=== PATIENT | female | born 1960 | race Caucasian/White ===

== ENCOUNTER → 2018-07-19 16:43 | Outpatient (CLI) | payer BC, SELFPAY ==
--- NOTE | 2018-07-19 16:46 | BI_ITS ---
MAMMOGRAPHY - BILATERAL SCREENING 3-D VIKTORIA SYNTHESIS REASON FOR EXAM: Female, 57 years old. Bilateral Screening 3-D tomosynthesis PERTINENT HISTORY: Personal history of DCIS status post left lumpectomy. History of left stereotactic biopsy in 2011 and right stereotactic biopsy in 2009.. TECHNIQUE: 2-D mammograms and 3-D Viktoria synthesis of the breast (s) were performed. CAD was performed. COMPARISON: July 12, 2017, July 11, 2016 FINDINGS: The breast composition is almost entirely fat. There are stable tissue clip markers in both breasts. There are stable lymph nodes in both axillae. Scattered benign calcifications are seen. No dense spiculated masses or suspicious microcalcifications are identified. No architectural distortion is identified. There is no skin thickening or retraction. There has been no significant change since the prior study. BI/SCREENING MAMM (CAD), BILAT IMPRESSION: No mammographic signs of malignancy. Routine yearly mammograms recommended. ASSESSMENT CATEGORY: BIRADS Category 2: Benign. A letter regarding these results will be sent to the patient by the facility within 30 days. FOLLOW UP RECOMMENDATION: Yearly follow up mammogram recommended. (A) Approximately 10% of breast cancers are not detected by mammography. A normal mammogram should not delay biopsy of a clinically suspicious abnormality. Electronically Signed: Mitchell Lamb MD at 10:58 EST , Service support ,
== END ==
PROVIDERS: Family Provider Family Medicine; PCP Family Medicine; Referring Provider Nurse Practitioner; Visit Provider Nurse Practitioner
DX: Z12.31 Encounter for screening mammogram for malignant neoplasm of breast (principal)
CPT/HCPCS: 77063; 77067

== ENCOUNTER → 2019-07-23 15:37 | Outpatient (CLI) | payer BC, SELFPAY ==
--- NOTE | 2019-07-23 15:39 | BI_ITS ---
MAMMOGRAPHY - BILATERAL SCREENING 3-D TOMOSYNTHESIS REASON FOR EXAM: Female, 58 years old. P/H OF DCIS AT AGE 51 2 MAT COUSINS 51 and amp;amp; 56 W/TRIPLE NEG -- 1 MAT COUSIN @ 53 W/DCIS -- QUIT TOMOXIFEN -- LT LATERAL BREAST TENDERNESS X6WKS RIDGELIKE AREA NEAR LUMPECTOMY SCAR ALONG LOWER RIB -- RT STEREO BX 2009 -- LT STEREO BX 2011 -- HAD CT SCAN NOVEMBER 2018 AT [facility] SAW SOMETHING ON RT BREAST HAD MAMMO DONE AT [facility] END OF NOVEMBER=N -- LT LUMPECTOMY 2012 WITH RADIATION -- LT STEREO BX AFTER LUMPECTOMY 12/2012 (NECROSIS) PERTINENT HISTORY: No significant family history. TECHNIQUE: 2-D mammograms and 3-D Tomosynthesis of the breast (s) were performed. CAD was performed. COMPARISON: December 04, 2018 and July 19, 2018. FINDINGS: The breast composition is composed of scattered fibroglandular density. There is an approximately 8.0 mm, ovoid, hyperdense density on the CC views within the deep slightly lateral right breast positioned approximately 71 mm from the nipple base. No definite correlative finding is seen on orthogonal views. Recommend sonographic evaluation of the lateral right breast for further evaluation. There is a 4.2 mm ovoid nodule within the right upper inner breast (anterior to mid zone) that is positioned 3.6 cm from the nipple base on CC views and positioned 4.3 cm deep to the nipple base on MLO views.. Recommend sonographic evaluation of of this finding for additional characterization. There is a small nodule with adjacent microcalcifications and a biopsy clip within the anterior upper right breast. There has been no significant change since the prior study. BI/SCREEN MAMM (CAD) W/VIKTORIA BILAT IMPRESSION: Discrete nodules and nodular densities within the right breast as above. Recommend further characterization with sonography. ASSESSMENT CATEGORY: BIRADS Category 0: Incomplete. Need additional imaging evaluation as above. A letter regarding these results will be sent to the patient by the facility within 30 days. FOLLOW UP RECOMMENDATION: Ultrasound Recommended. (I) Approximately 10% of breast cancers are not detected by mammography. A normal mammogram should not delay biopsy of a clinically suspicious abnormality. Electronically Signed: Hadley Mcelroy MD at 15:22 EST , Service support ,
== END ==
PROVIDERS: Family Provider Family Medicine; PCP Family Medicine; Referring Provider Nurse Practitioner; Visit Provider Nurse Practitioner
DX: Z12.31 Encounter for screening mammogram for malignant neoplasm of breast (principal); D05.12 Intraductal carcinoma in situ of left breast
CPT/HCPCS: 77063; 77067

== ENCOUNTER → 2019-08-02 08:22 | Outpatient (CLI) | payer BC, SELFPAY ==
--- NOTE | 2019-08-02 08:24 | US_ITS ---
STUDY: ULTRASOUND BREAST - RIGHT REASON FOR EXAM: Female, 59 years old. Abnormal screening mammogram. TECHNIQUE: Axial and longitudinal images of the RIGHT breast were performed with a high resolution ultrasound transducer. # OF IMAGES: 81 COMPARISON: Comparison is made with prior mammogram dated July 23, 2019 and prior ultrasound of the left breast dated May 02, 2013. FINDINGS: RIGHT Breast: Multiple cysts are seen in the upper medial and lateral aspect of the right breast. The largest cyst measures 7 mm x 8 mm x 3 mm. This is at the 9:00 position breast at 8 cm. US/Breast Limited Unilateral IMPRESSION: Multiple cysts. ASSESSMENT CATEGORY: BIRADS Category 2: Benign. A letter regarding these results will be sent to the patient by the facility within 30 days. Electronically Signed: Hong Esquivel, at 15:18 EST , Service support ,
== END ==
PROVIDERS: Family Provider Family Medicine; PCP Family Medicine; Referring Provider Nurse Practitioner; Visit Provider Nurse Practitioner
DX: D05.12 Intraductal carcinoma in situ of left breast (principal); R92.8 Other abnormal and inconclusive findings on diagnostic imaging of breast
CPT/HCPCS: 76642

== ENCOUNTER → 2019-12-04 14:34 | Outpatient (CLI) | payer BC, SELFPAY ==
[2017-10-08 11:31] VITALS: BMI 34.9
[2019-12-04 16:43] LABS: D-Dimer Quantitative (DVT/PE) 0.39 FEU/ug/m (0.27-0.49)
== END ==
PROVIDERS: PCP Family Medicine; Referring Provider Family Medicine; Visit Provider Family Medicine
DX: R07.9 Chest pain, unspecified (principal)
CPT/HCPCS: 84484; 85379

== ENCOUNTER → 2020-06-03 14:06 | Outpatient (CLI) | payer BC, SELFPAY ==
[2020-06-03 13:19] VITALS: BMI 37.9
[2020-06-03 15:15] LABS: Absolute Lymphocyte Count 2.07 X10^3/uL (0.83-4.51); Absolute Neutrophil Count 2.5 X10^3/uL (2.0-7.7); Basophil# 0.03 X10^3/uL; Basophil% 0.6 % (0-1); Eosinophil# 0.18 X10^3/uL; Eosinophils% 3.4 % (0-5); Hematocrit 40.5 % (37-47); Lymphocyte # 2.07 X10^3/ul (4.0); Mean Corp Hgb Conc 32.1 g/dL (32-36); Mean Corpuscular Hgb 28.1 pg (27.0-32.0); Mean Corpuscular Volume 87.7 fL (81-99); Mean Platelet Vol. 9.8 fl (6.2-12.0); Monocyte% 9.4 % (0-10); NRBC Flagged by Analyzer 0 % (0-5); Neutrophil # 2.52 X10^3/uL (2.7-7.7); Neutrophil % 47.4 % (47-70); Platelet Count 300 K/mm3 (150-450); RBC Distribution Width CV 13.8 % (11.6-14.6); RBC Distribution Width SD 44.1 fl (35.1-43.9); Red Blood Count 4.62 M/mm3 (4.2-5.4); White Blood Count 5.3 K/mm3 (4.4-11.0)
[2020-06-03 16:26] LABS: AST(SGOT) 24 U/L (15-37); Alanine Aminotransfer ALT/SGPT 43 U/L (13-56); Albumin, Serum 3.9 g/dL (3.2-5.0); Alkaline Phosphatase 76 U/L (45-117); Anion Gap 8 (5-15); BUN 15 mg/dL (7-18); BUN/Creat Ratio 19.4 RATIO (10-20); Bilirubin, Direct 0.11 mg/dL (0.00-0.30); Calcium,Total 8.7 mg/dL (8.5-10.1); Chloride 107 mmol/L (98-107); Cholesterol 218 mg/dL (200); Creatinine, Serum 0.77 mg/dL (0.55-1.02); EST Glomerular Filtration Rate 81 mL/min (>60); Est Glom Filt Rate - Afr Amer 98 mL/min (>60); Globulin 3.6 g/dL (2.2-4.2); Glucose 91 mg/dL (74-106); High Density Lipoprotein 47 mg/dL; Potassium 3.8 mmol/L (3.5-5.1); Protein, Total 7.5 g/dL (6.4-8.2); Sodium Level 141 mmol/L (136-145); Thyroid Stim Hormone (TSH) 0.91 uIU/mL (0.358-3.74); Triglycerides 130 mg/dL; Very Low Density Lipoprotein 26 mg/dL (5-40)
[2020-06-03 16:43] LABS: BNP,B-Type NATRIURETIC PEPTIDE 48.2 pg/mL (0-100)
== END ==
PROVIDERS: PCP Family Medicine; Referring Provider Internal Medicine Cardiovascular Disease; Visit Provider Internal Medicine Cardiovascular Disease
DX: R07.9 Chest pain, unspecified (principal); R06.00 Dyspnea, unspecified
CPT/HCPCS: 36415; 80048; 80061; 80076; 83880; 84443; 85025

== ENCOUNTER → 2020-06-15 06:32 | Outpatient (CLI) | payer BC, SELFPAY ==
[2020-06-03 13:19] VITALS: BMI 37.9
--- NOTE | 2020-06-15 06:36 | ECHOCS_ITS ---
Reason For Study: CAD/ASHD Procedure This was a 2D Doppler, Color Flow transthoracic echocardiogram. Technically difficult study. Unable to perform strain analysis due to needed use of Definity. Exam performed in department. Left Ventricle Normal LV size. Left ventricular systolic function is normal. The estimated ejection fraction is 65 %. Stage 1 diastolic dysfunction. No regional wall motion abnormalities noted. Right Ventricle Normal RV size. Normal systolic function. Atria Normal left atrium. Normal right atrium. Mitral Valve Normal mitral valve. Tricuspid Valve Normal tricuspid valve. Aortic Valve Normal aortic valve. Trisinus/trileaflet aortic valve. Pulmonic Valve Normal pulmonic valve. Great Vessels Normal aortic root. The pulmonary artery is normal size. Normal inferior vena cava. Pericardium/Pleural No pericardial effusion. Medication 22 gauge I.V. with prn adaptor inserted into right arm. Diluted definity 2ml given slow IV push to enhance endocardial definition. MMode/2D Measurements & Calculations LVIDd: 4.2 cm IVSd: 0.99 cm Ao root diam: 3.3 cm LVIDs: 2.0 cm LVPWd: 1.1 cm LA dimension: 3.2 cm FS: 53.6 % LAV(MOD-bp): 44.1 ml LA A4 area: 15.5 cm2 RA A4 area: 12.4 cm2 LAV(MOD-bp) Indexed: 21.3 ml/m2 LAV(MOD-sp2): 48.6 ml LAV(MOD-sp4): 36.3 ml Time Measurements MV dec time: 0.22 sec Doppler Measurements & Calculations MV E max hank: 73.7 cm/sec Lat Peak E' Hank: 8.3 cm/sec Med Peak E' Hank: 9.4 cm/sec MV A max hank: 88.2 cm/sec E/E' lat: 8.8 E/E' med: 7.8 MV E/A: 0.84 MV V2 max: 89.1 cm/sec MV P1/2t max hank: 82.3 cm/sec Ao V2 max: 120.6 cm/sec MV max P.2 mmHg MV P1/2t: 94.4 msec Ao max P.8 mmHg MV V2 mean: 49.0 cm/sec MV dec slope: 255.2 cm/sec2 MV mean P.1 mmHg MV V2 VTI: 31.8 cm MVA(P1/2t): 2.3 cm2 LV V1 max: 108.3 cm/sec PA V2 max: 92.5 cm/sec LV V1 max P.7 mmHg Interpretation Summary Normal LV size. Left ventricular systolic function is normal. The estimated ejection fraction is 65 %. Stage 1 diastolic dysfunction. Contrast injection was performed. Ordering Physician: Vini Monte Referring Physician: LEYLA CHAIDEZ Performed By: Jose Brown RCS
--- NOTE | 2020-06-15 09:22 | STRESSREP ---
Stress Test Report Exercise myocardial perfusion stress test. 59-year-old lady with a history of chest pain status post previous left-sided chest radiation. Stress protocol: Resting EKG demonstrates normal sinus rhythm with a rate of 67 bpm normal intervals are noted resting blood pressure 142/88 mmHg. The patient exercised according to the regular Luigi protocol for 4 minutes and 31 seconds. The maximum heart rate was 150 bpm which was 92% of max impacted heart rate the maximum workload was 6.4 metabolic equivalents. Patient completed 1 minute and 30 seconds into stage II of the Luigi protocol. The patient maintained sinus rhythm throughout the recording. At rest there were no ST or T wave changes noted to suggest ischemia at peak exercise upsloping ST changes were noted with no no meet the criteria for ischemia. The peak blood pressure was 170/88 mmHg. Myocardial perfusion protocol. 11.8 mCi of technetium 99m sestamibi was injected at rest. The patient exercised for 4-1/2 minutes and at peak exercise 34.5 mCi of technetium 99m sestamibi was injected stress images were obtained stress and rest images were reconstructed and compared in the short axis vertical long horizontal long axis. Gated images were also obtained Perfusion SPECT analysis: Review of the stress images demonstrate mild reduction of perfusion in the mid anterior region with mild improvement on the resting images suggesting a mild amount of mid anterior ischemia. The rest of the schuster including the septum inferior wall and lateral wall appear to be normally perfused. Gated SPECT analysis: The gated ejection fraction is 78%. Conclusion: Mildly abnormal myocardial perfusion stress test with mild mid anterior ischemia. Mild functional aerobic impairment noted. Radiation-induced changes cannot be completely excluded. Preserved ejection fraction
== END ==
PROVIDERS: PCP Family Medicine; Referring Provider Internal Medicine Cardiovascular Disease; Visit Provider Internal Medicine Cardiovascular Disease
DX: I25.10 Atherosclerotic heart disease of native coronary artery without angina pectoris (principal); R06.00 Dyspnea, unspecified
CPT/HCPCS: 78452; 93017; 93306; A9500; Q9957; A4216; C8929

== ENCOUNTER 2020-07-22 06:45 | Day surgery (SDC) | payer BC, SELFPAY ==
[2020-06-03 13:19] VITALS: BMI 37.9
[2020-07-07 10:39] VITALS: BMI 37.5
--- NOTE | 2020-07-07 11:29 | RAD_ITS ---
STUDY: X-RAY CHEST REASON FOR EXAM: Female, 59 years old. Chest pain. Preop, heart catheterization. TECHNIQUE: PA and lateral views of the chest. COMPARISON: None. FINDINGS: The lungs are clear and expanded. There is no demonstrated pleural abnormality. Normal size heart. Normal mediastinum and max. Normal visualized pulmonary arteries. Normal visualized aortic arch and descending thoracic aorta. Mild degenerative changes of the thoracic spine. Normal visualized ribs, clavicles, and shoulders. There is no demonstrated abnormality of the visualized soft tissue structures of the upper abdomen. RAD/Chest PA and Lateral IMPRESSION: Degenerative changes, as described above. No demonstrated acute cardiopulmonary process. Electronically Signed: Theo Ortega DO at 17:32 EST Tel [phone], Service support ,
[2020-07-07 12:21] LABS: Absolute Lymphocyte Count 2.55 X10^3/uL (0.83-4.51); Absolute Neutrophil Count 3.7 X10^3/uL (2.0-7.7); Basophil# 0.05 X10^3/uL; Basophil% 0.7 % (0-1); Eosinophil# 0.15 X10^3/uL; Eosinophils% 2.1 % (0-5); Hematocrit 43.2 % (37-47); Hemoglobin 13.9 g/dL (12.0-15.0); Lymphocyte # 2.55 X10^3/ul (4.0); Lymphocyte % 36.1 % (19-41); Mean Corp Hgb Conc 32.2 g/dL (32-36); Mean Corpuscular Hgb 28.3 pg (27.0-32.0); Mean Platelet Vol. 9.8 fl (6.2-12.0); Monocyte# 0.64 X10^3/uL; Monocyte% 9.1 % (0-10); NRBC Flagged by Analyzer 0 % (0-5); Neutrophil # 3.66 X10^3/uL (2.7-7.7); Neutrophil % 51.7 % (47-70); Platelet Count 345 K/mm3 (150-450); RBC Distribution Width CV 13.3 % (11.6-14.6); RBC Distribution Width SD 43.1 fl (35.1-43.9); Red Blood Count 4.91 M/mm3 (4.2-5.4); White Blood Count 7.1 K/mm3 (4.4-11.0)
[2020-07-07 12:23] LABS: International Normalized Ratio 0.9; Prothrombin Time (Protime)PT. 12.1 SECONDS (11.7-14.9)
[2020-07-07 12:28] LABS: Partial Thromboplast Time 24.8 Seconds (24.1-36.2)
[2020-07-07 12:51] LABS: BUN 20 mg/dL (7-18); Glucose 91 mg/dL (74-106)
[2020-07-07 12:52] LABS: Anion Gap 6 (5-15); BUN/Creat Ratio 25.1 RATIO (10-20); Calcium,Total 9.2 mg/dL (8.5-10.1); Chloride 106 mmol/L (98-107); EST Glomerular Filtration Rate 79 mL/min (>60); Est Glom Filt Rate - Afr Amer 95 mL/min (>60); Sodium Level 140 mmol/L (136-145)
[2020-07-15 12:08] VITALS: BMI 37.5
--- NOTE | 2020-07-22 06:07 | HP_ITS ---
HPI HPI History of Present Illness Surgical H&P: Yes Details: Pleasant 59-year-old lady with no previous cardiac history who has been under some amount of stress. She does have a history of left breast cancer status post radiation and tamoxifen recommend. She presented initially because she has had some chest discomfort at rest as well as shortness of breath with activity over 2 months. She has had no dizziness or diaphoresis no near syncope or syncope. She has been compliant with her medications. She has also had mild pedal edema etiology of which is not entirely clear. She had previously been on hydrochlorothiazide without significant improvement to the above and so this was switched to Lasix. She did have a course of steroids where she says that the pedal edema predated this. Her physical exam demonstrated clear lung snyder regular rate and rhythm no pedal edema. Her electrocardiogram from May 13 demonstrated normal sinus rhythm with an incomplete right bundle block. She underwent an echocardiogram in May 2020 showed an ejection fraction of 65% and stage I diastolic dysfunction. Her stress test on 06/15/2020 was considered mildly abnormal with mild mid anterior ischemia. It was recommended she proceed with heart catheterization. This initially was denied due to patient not on maximal medical therapy such as antianginal medication. Thus, she was started on Norvasc therapy. She denies arm, jaw, or neck discomfort. Her exercise tolerance is stable. She denies symptoms of near syncope, or syncopal episodes. She denies claudication issues. She denies orthopnea, PND, fever, chills, cough, blood in urine, blood in stool, epistaxis, myalgia, or unexplainable fatigue. She states intermittent chest pain that can occur at rest. She has noticed with activity too. She states this has worsened since last office visit. This is located left upper chest. This radiates into her left shoulder and back at times. This pain resolves on its own with deep breathing. She rates this at worse 6/10. She state it can be intense enough to stop her activity. She notes SOB with physical exertion such as going up steps or walking into catholic. This improves with rest. She noted palpitations that she describes her heart out of sync when lying flat after pain injection. She does acknowledge lightheadedness and dizziness most noted with chest pain. She states chronic lower extremity edema bilaterally. This is worse over the last few months. She states taking Lasix 2-3 times a week. 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 Accompanied by: None Is patient in pain?: No Allergies No Known Allergies Allergy (Verified 07/07/20 10:33) Medications venlafaxine 37.5 mg capsule,extended release 24 hr PO 30 Days #30 09/05/17 [History Confirmed 07/07/20] furosemide 20 mg tablet 20 mg PO DAILY PRN 06/03/20 [History Confirmed 07/07/20] tizanidine 4 mg capsule 4 mg PO BID PRN 06/03/20 [History Confirmed 07/07/20] aspirin 81 mg tablet,delayed release 81 mg PO DAILY 06/15/20 [History Confirmed 07/07/20] clopidogrel 75 mg tablet 75 mg PO DAILY #30 tab 06/15/20 [Rx Confirmed 07/07/20] amlodipine 2.5 mg tablet 2.5 mg PO DAILY #30 tab 06/23/20 [Rx Confirmed 07/07/20] [facility] Medical History (Updated 07/07/20 @ 10:26 by Eric Vaughn STEAMFITTER SUPERVISOR, STEAMFITTER SUPERVISOR-C) Incomplete right bundle branch block (Chronic) Hyperlipidemia (Chronic) Breast cancer, left breast (Chronic 2012) Obesity (BMI 30.0-34.9) (Chronic) Back pain (Resolved) Fatigue (Resolved) Neck pain (Resolved) Severe headache (Resolved) Shortness of breath (Resolved) Surgical History History of appendectomy (Resolved) History of hysterectomy (Resolved) History of lumpectomy (Resolved) History of partial mastectomy (Resolved 2012) Family History (Updated 07/07/20 @ 11:03 by Eric Vaughn STEAMFITTER SUPERVISOR, STEAMFITTER SUPERVISOR-C) Father Abdominal aortic aneurysm Other Cancer Social History (Updated 07/07/20 @ 12:30 by Eric Vaughn NP, STEAMFITTER SUPERVISOR-C) Smoking Status: Never smoker alcohol intake: current alcohol intake frequency: holidays/special occasions only ROS Const Const: Negative for fatigue, weakness, body ache, fever(s) or chills ENT ENT: Positive for dizziness; negative for Nosebleed/epistaxis Cardio Chest Pain: Yes Palpitations: Yes Edema: Bilateral Muscle aches with walking: None Resp Respiratory: Positive for SOB with activity; negative for SOB at rest, SOB orthopnea\SOB lying down, Cough or paroxysmal nocturnal dyspnea GI GI: Negative nausea, vomiting blood/hematemesis, bright, red blood in stools or black,tarry stools : Negative for hematuria or frequent nighttime urination/ nocturia Musc Musc: Negative for muscle aches/ myalgia Skin Skin: Negative non-healing lesions or rash Neuro Neuro: Positive for dizziness and lightheadedness; negative for near syncope, syncope, orthostatic symptoms or weakness Endo Endo: Negative for fatigue Allergy Allergy/Immunology: Negative for rash Cardiology Exam Const Appearance: cooperative, healthy appearing, comfortable and no acute distress Nutritional Appearance: well nourished and obese Orientation: alert, awake and oriented x3 Head Head: normal to inspection Ears: hearing grossly normal bilaterally Nose: external nose normal Face and Sinus: face symmetric Mouth: oral mucosae normal Eyes General: appearance normal, both eyes and all related structures Eyelids: eyelids normal EOM: EOM intact bilaterally Neck Neck: normal visual inspection and no JVD Carotids: normal carotid upstroke Chest Chest inspection: normal inspection of the chest, symmetric chest movement and normal respiratory effort; negative cough Auscultation: Bilateral: Clear to Auscultation Cardio Rate: regular rate Rhythm: regular rhythm Heart sounds: S1 normal and S2 normal; negative rub, gallop or murmur GI GI: normal to inspection and obese Neuro General: alert, awake, oriented x3 and CN's II-XI intact bilaterally Skin Skin: no rashes or lesions noted Extremities Pulses: Normal: Right Posterior Tibial Pulse, Left Posterior Tibial Pulse, Right Radial Pulse, Left Radial Pulse Lower Extremity Edema: None: Bilateral Psych Psychological: normal affect Assessment & Plan 1. Abnormal cardiovascular stress test R94.39 Plan Her stress test on 06/15/2020 was considered to be mildly abnormal with mild mid anterior ischemia. She was started on Norvasc 2.5 mg p.o. daily to assist with chest pain. She states that her chest pain is worse today since beginning medical therapy. Her chest pain does have typical and atypical features. At this time, given her multiple risk factors, hyperlipidemia, obesity, left breast cancer status post radiation and chemotherapy, and general inactivity in the setting of an abnormal stress test, it was recommend that she proceed with heart catheterization to assess further. At this time, does not appear that medical therapy/amlodipine therapy has controlled her chest pain. Based on results, further recommendation will be made. Her EKG today in office shows a sinus bradycardia with incomplete right bundle branch block at a rate of 59 bpm, DC interval 154, QTC 405, and QRS of 118. There are no acute ST or T wave changes noted. Orders Orders: 12 Lead EKG performed by [facility] Today Basic Metabolic Profile (BMP) Today Partial Thromboplast Time Today Prothrombin Time w/INR Today CBC W/Diff, Automated Today Chest PA and Lateral Today 2. Elevated blood pressure reading in office without diagnosis of hypertension R03.0 Plan Her blood pressure is better controlled today. This may be result of amlodipine therapy. This will be followed over time with medication adjustment accordingly. At this time, she will continue current medical therapy. Orders Orders: Basic Metabolic Profile (BMP) Today Partial Thromboplast Time Today Prothrombin Time w/INR Today CBC W/Diff, Automated Today Chest PA and Lateral Today 3. Hyperlipidemia, unspecified hyperlipidemia type E78.5 Plan Lipid panel from 06/03/2020 showed Cholesterol: 218, HDL: 47, LDL: 145, and Triglycerides: 130. She is currently not on cholesterol-lowering medication. We will await results from heart catheterization to further address lipid panel. Based on coronary artery disease status, statin medication at low, moderate, or high dose will be recommended. She was reminded the importance of risk factor and lifestyle modification. Orders Orders: Basic Metabolic Profile (BMP) Today Partial Thromboplast Time Today Prothrombin Time w/INR Today CBC W/Diff, Automated Today Chest PA and Lateral Today Plan Detail Other Orders Orders: Basic Metabolic Profile (BMP) Today R07.9 Partial Thromboplast Time Today R07.9 Prothrombin Time w/INR Today R07.9 CBC W/Diff, Automated Today R07.9 Chest PA and Lateral Today R07.9 Additional Comments Thank you for allowing us to participate in the patients plan of care, if you have any questions please do not hesitate to call. This note was generated using a voice recognition system and there may be incorrect words, spelling or punctuation that were not noted when reviewing the office note prior to saving. Follow Up 6 Months (PROGRAM TECHNICIAN) Coding Level of Care Code Off vis,est,level 3 Diagnoses Abnormal cardiovascular stress test R94.39 Elevated blood pressure reading in office without diagnosis of hypertension R03.0 Hyperlipidemia, unspecified hyperlipidemia type E78.5 ??Hyperlipidemia type: unspecified Coding Level of Care Code Off vis,est,level 3 Diagnoses Abnormal cardiovascular stress test R94.39 Elevated blood pressure reading in office without diagnosis of hypertension R03.0 Hyperlipidemia, unspecified hyperlipidemia type E78.5 ??Hyperlipidemia type: unspecified Supplemental Info Supplemental Information Echocardiogram 06/15/2020: Interpretation Summary Normal LV size. Left ventricular systolic function is normal. The estimated ejection fraction is 65 %. Stage 1 diastolic dysfunction. Contrast injection was performed. Stress test from 06/15/2020: Conclusion: Mildly abnormal myocardial perfusion stress test with mild mid anterior ischemia. Mild functional aerobic impairment noted. Radiation-induced changes cannot be completely excluded. Preserved ejection fraction Labs LDL Cholesterol 145 mg/dL (0-130) H 06/03/20 HDL Cholesterol 47 mg/dL (40-) 06/03/20 Triglycerides 130 mg/dL (-199) 06/03/20 VLDL Cholesterol 26 mg/dL (5-40) 06/03/20 Diagnostics Electrocardiogram 07/07/20 Echocardiogram 06/15/20 Stress Test Nuclear Medicine 06/15/20 Stress Test 06/15/20 Chest X-Ray 07/07/20
--- NOTE | 2020-07-22 08:36 | CL.D_ITS ---
Patient Name: RAMONA WREN Study Date: 07/22/2020 Performing: Vini Monte MD Ht: 64.96 inches 165 cm : 1960 Wt: 227.08 lbs 103 kg Age: 59 Gender: female BSA: 2.09 PROCEDURE(S) PERFORMED [id number]-YQN/COR/LV CLINICAL PROFILE AND INDICATIONS Indications: Worsening Angina Heart Failure: None Stress/Imaging Date: 06/27/2020Stress Test with SPECT MPI: Positive Intermediate Risk CAD Presentations: Unstable angina. CONCLUSIONS Non obstructive coronary arteries Normal LV size, wall motion,and systolic function RECOMMENDATIONS Medical therapy DESCRIPTION OF PROCEDURE The patient arrived to the procedure lab. The risks and benefits of the procedure as well as a full d escription of our services here and current unavailability of surgical backup were fully explained to the patient and/or their significant other prior to the catheterization. The Timeout was completed, verifying the correct patient and procedure. The patient's procedural site was prepped and draped in the usual fashion. Local anesthetic was given subcutaneously to right radial region with Lidocaine 2% . Using a modified Seldinger technique, arterial access was obtained via the right radial artery, a 6 Fr sheath was inserted. Left Coronary Artery selective angiography was performed in multiple views u sing a 5 Fr. 4.0 Anson catheter. Right Coronary Artery selective angiography was then performed in mu ltiple views using a 5 Fr. 4.0 Anson catheter. Left Ventriculography was performed in WREN projection using a 5 Fr. Pigtail catheter. LV to AO pullback pressures were then recorded.The arterial sheath was pulled and a TR Band was applied for hemostasis 11cc air inserted CORONARY ANGIOGRAPHY DOMINANCE: Right Dominant LEFT HEART ASSESSMENT Left Ventricular Ejection Fraction: by LV Gram 65 % Normal LV wall motion Normal Left Ventricular systolic function LEFT MAIN: Angiographically normal SEPTAL: Mild luminal irregularities CIRCUMFLEX ARTERY: No significant disease noted RIGHT CORONARY ARTERY: No significant disease noted COMPLICATIONS No Complications PROCEDURE MEDICATIONS Fentanyl 50 mcg IV Versed 1 mg IV Oxygen: 2 L/min via nasal cannula Heparin diluted in 23cc Heparinized saline. Patient given 10cc IA of this solution. 07/22/2020 08:10 :09 Verapamil 2.5mg, Ntg 100mcgs, 2000 units of Heparin diluted in 23cc Heparinized saline. Patient give n 10cc IA of this solution. 07/22/2020 08:10:09 SUMMARY OF HEMODYNAMIC DATA Time AIR REST ECG 07:09:37 AO 99/68 (83) SA 08:12:34 LV 89/6, 16 08:18:53 LV 90/5, 15 08:18:59 LV 95/7, 13 08:19:52 LVp 92/6, 18 08:19:55 AOp 119/75 (97) 08:20:00 Signed By Vini Monte MD On 07/22/2020 8:35:38 AM Vini Monte MD
== END 2020-07-22 10:05 | disposition home or self-care (01) ==
LOC: CLSP 06:46
PROVIDERS: Nurse Practitioner Family; PCP Family Medicine; Referring Provider Internal Medicine Cardiovascular Disease; Visit Provider Internal Medicine Cardiovascular Disease
DX: R94.39 Abnormal result of other cardiovascular function study (principal); R03.0 Elevated blood-pressure reading, without diagnosis of hypertension; E78.5 Hyperlipidemia, unspecified; I45.10 Unspecified right bundle-branch block; E66.9 Obesity, unspecified; R42 Dizziness and giddiness; R06.02 Shortness of breath; R07.9 Chest pain, unspecified; Z85.3 Personal history of malignant neoplasm of breast; R60.0 Localized edema; Z79.82 Long term (current) use of aspirin; Z79.899 Other long term (current) drug therapy; Z92.21 Personal history of antineoplastic chemotherapy; Z92.3 Personal history of irradiation; Z68.30 Body mass index [BMI] 30.0-30.9, adult
CPT/HCPCS: 36415; 71046; 80048; 85025; 85610; 85730; 93458; 99152; 99153; J7040; C1769; C1894; Q9967

== ENCOUNTER → 2020-07-30 07:00 | Outpatient (CLI) | payer BC, SELFPAY ==
[2020-06-03 13:19] VITALS: BMI 37.9
[2020-07-15 12:08] VITALS: BMI 37.5
--- NOTE | 2020-07-30 07:03 | BI_ITS ---
MAMMOGRAPHY - BILATERAL SCREENING REASON FOR EXAM: Female, 60 years old. Routine annual screening examination. PERTINENT HISTORY: Personal history of breast cancer. Prior left lumpectomy with radiation therapy. Remote bilateral stereotactic breast biopsies. TECHNIQUE: Digital bilateral breast viktoria (3D mammographic acquisition) in the CC and MLO projections. 2-D mediolateral oblique (MLO) and craniocaudad (CC) views of both breasts were obtained. CAD: Full Field Digital Mammography with Computer Added Detection was performed. COMPARISON: Comparison is made with prior study dated 07/23/2019 and 07/19/2018. FINDINGS: Breast Composition: The breasts are heterogeneously dense, which may obscure small masses. There are no dominant masses or suspicious calcifications. Stable 9 mm well-defined nodule in the upper deep lateral portion of the right breast. This was demonstrated to be a small cyst on prior sonogram. No other significant abnormalities are identified. There has been no significant change since the prior study. BI/SCREEN MAMM (CAD) W/VIKTORIA BILAT IMPRESSION: Stable bilateral screening mammogram. Yearly follow-up mammogram recommended. (A) ASSESSMENT CATEGORY: BIRADS Category 2: Benign. A letter regarding these results will be sent to the patient by the facility within 30 days. Approximately 10% of breast cancers are not detected by mammography. A normal mammogram should not delay biopsy of a clinically suspicious abnormality. [id number] Electronically Signed: Hong Esquivel, at 8:21 EST , Service support ,
== END ==
PROVIDERS: PCP Family Medicine; Visit Provider Nurse Practitioner
DX: Z12.31 Encounter for screening mammogram for malignant neoplasm of breast (principal); D05.12 Intraductal carcinoma in situ of left breast
CPT/HCPCS: 77063; 77067

== ENCOUNTER 2020-10-08 09:13 | Outpatient (RCR) | payer BC, SELFPAY ==
[2020-07-15 12:08] VITALS: BMI 37.5
[2020-10-08] MEDS: COVID-19 VACC, MRNA(PFIZER)/PF 30 MCG/0.3 ML SYRINGE IM (16:16)
[2020-10-29] MEDS: COVID-19 VACC, MRNA(PFIZER)/PF 30 MCG/0.3 ML SYRINGE IM (15:49)
== END 2020-10-08 23:59 ==
LOC: IMMUN 09:13
PROVIDERS: PCP Family Medicine; Visit Provider Family Medicine
DX: Z23 Encounter for immunization (principal)
CPT/HCPCS: 0001A; 0002A; 91300

== ENCOUNTER 2021-08-03 07:03 | Outpatient (CLI) | payer BC, SELFPAY ==
--- NOTE | 2021-08-03 07:07 | BI_ITS ---
MAMMOGRAPHY - BILATERAL SCREENING REASON FOR EXAM: Female, 61 years old. Routine annual screening examination. PERTINENT HISTORY: Personal history of breast cancer. Prior left lumpectomy with radiation therapy. History of prior bilateral stereotactic breast biopsies. TECHNIQUE: Digital bilateral breast viktoria (3D mammographic acquisition) in the CC and MLO projections. 2-D mediolateral oblique (MLO) and craniocaudad (CC) views of both breasts were obtained. CAD: Full Field Digital Mammography with Computer Added Detection was performed. COMPARISON: Comparison is made with prior study dated 01/27/2021 and 07/23/2019. FINDINGS: Breast Composition: The breasts are heterogeneously dense, which may obscure small masses. There are no dominant masses or suspicious calcifications. Stable 9 mm well-defined nodule in the upper deep lateral aspect of the right breast. This was demonstrated to be a cyst on prior sonogram. Tissue clip marker is once again seen in both breasts. The patient is status post left lumpectomy. No other significant abnormalities are identified. There has been no significant change since the prior study. BI/SCRN MAMM (CAD)W/VIKTORIA BILAT IMPRESSION: Stable bilateral screening mammogram. Yearly follow-up mammogram recommended. (A) ASSESSMENT CATEGORY: BIRADS Category 1: Negative. A letter regarding these results will be sent to the patient by the facility within 30 days. Approximately 10% of breast cancers are not detected by mammography. A normal mammogram should not delay biopsy of a clinically suspicious abnormality. [id number] Electronically Signed: Hong Esquivel MD at 8:27 EST , Service support ,
== END 2021-08-03 23:59 | disposition short-term general hospital (02) ==
LOC: OPBI 07:03
PROVIDERS: PCP Family Medicine; Referring Provider Nurse Practitioner; Visit Provider Nurse Practitioner
DX: Z12.31 Encounter for screening mammogram for malignant neoplasm of breast (principal); D05.12 Intraductal carcinoma in situ of left breast; Z85.3 Personal history of malignant neoplasm of breast
CPT/HCPCS: 77063; 77067

== ENCOUNTER → 2022-08-04 | Outpatient (CLI) | payer BC, SELFPAY ==
--- NOTE | 2022-08-04 09:09 | BI_ITS ---
MAMMOGRAPHY - BILATERAL SCREENING REASON FOR EXAM: Female, 62 years old. Routine annual screening examination. PERTINENT HISTORY: Personal history of breast cancer. Prior left lumpectomy and radiation treatment. Bilateral stereotactic breast biopsies. TECHNIQUE: Digital bilateral breast viktoria (3D mammographic acquisition) in the CC and MLO projections. 2-D mediolateral oblique (MLO) and craniocaudad (CC) views of both breasts were obtained. CAD: Full Field Digital Mammography with Computer Added Detection was performed. COMPARISON: Comparison is made with prior study dated 08/03/2021 and 07/30/2020. FINDINGS: Breast Composition: The breasts are heterogeneously dense, which may obscure small masses. There are no dominant masses or suspicious calcifications. Stable 9 mm well-defined nodule in the upper deep lateral aspect of the right breast. This was demonstrated to be a small cyst on prior sonogram. Interstitial markings once again seen in both breasts. Status post left lumpectomy with mild residual architectural distortion. No other significant abnormalities are identified. There has been no significant change since the prior study. BI/SCRN MAMM (CAD)W/VIKTORIA BILAT IMPRESSION: Stable bilateral screening mammogram. Yearly follow-up mammogram recommended. (A) ASSESSMENT CATEGORY: BIRADS Category 2: Benign. A letter regarding these results will be sent to the patient by the facility within 30 days. Approximately 10% of breast cancers are not detected by mammography. A normal mammogram should not delay biopsy of a clinically suspicious abnormality. [id number] Electronically Signed: Hong Esquivel MD at 11:11 EST ,
== END | disposition home or self-care (01) ==
LOC: OPBI 09:08
PROVIDERS: PCP Family Medicine; Visit Provider Nurse Practitioner
DX: Z12.31 Encounter for screening mammogram for malignant neoplasm of breast (principal); N63.10 Unspecified lump in the right breast, unspecified quadrant; Z92.89 Personal history of other medical treatment; D05.12 Intraductal carcinoma in situ of left breast; Z85.3 Personal history of malignant neoplasm of breast; Z92.3 Personal history of irradiation
CPT/HCPCS: 77063; 77067

== ENCOUNTER → 2022-08-04 | Outpatient (CLI) | payer BC, SELFPAY | END | disposition home or self-care (01) | LOC: OPBI 09:04 | PROVIDERS: PCP Family Medicine; Visit Provider Nurse Practitioner | DX: Z12.31 Encounter for screening mammogram for malignant neoplasm of breast (principal); D05.12 Intraductal carcinoma in situ of left breast ==

== ENCOUNTER → 2023-08-07 | Outpatient (CLI) | payer BC, SELFPAY ==
--- NOTE | 2023-08-07 10:18 | BI_ITS ---
MAMMOGRAPHY - BILATERAL SCREENING REASON FOR EXAM: Female, 63 years old. Routine annual screening examination. PERTINENT HISTORY: Personal history of breast cancer. Prior left lumpectomy and radiation treatment. Prior left stereotactic and right stereotactic breast biopsies. TECHNIQUE: Digital bilateral breast viktoria (3D mammographic acquisition) in the CC and MLO projections. 2-D mediolateral oblique (MLO) and craniocaudad (CC) views of both breasts were obtained. CAD: Full Field Digital Mammography with Computer Added Detection was performed. COMPARISON: Comparison is made with prior study dated August 04, 2022 and August 03, 2021. FINDINGS: Breast Composition: The breasts are heterogeneously dense, which may obscure small masses. There are no dominant masses or suspicious calcifications. A tissue clip marker is seen in the superior lateral retroareolar region of the left breast. 2 adjacent tissue markers are seen in the superior retroareolar region of the right breast. No other significant abnormalities are identified. There has been no significant change since the prior study. BI/SCRN MAMM (CAD)W/VIKTORIA BILAT IMPRESSION: Stable bilateral screening mammogram. Yearly follow-up mammogram recommended. (A) ASSESSMENT CATEGORY: BIRADS Category 2: Benign. A letter regarding these results will be sent to the patient by the facility within 30 days. Approximately 10% of breast cancers are not detected by mammography. A normal mammogram should not delay biopsy of a clinically suspicious abnormality. [id number] Electronically Signed: Hong Esquivel MD at 11:04 EST ,
== END | disposition home or self-care (01) ==
LOC: OPBI 10:17
PROVIDERS: PCP Family Medicine; Visit Provider Nurse Practitioner
DX: Z12.31 Encounter for screening mammogram for malignant neoplasm of breast (principal); Z85.3 Personal history of malignant neoplasm of breast
CPT/HCPCS: 77063; 77067

== ENCOUNTER → 2024-08-09 | Outpatient (CLI) | payer BC, SELFPAY ==
--- NOTE | 2024-08-09 11:59 | BI_ITS ---
MAMMOGRAPHY - BILATERAL SCREENING REASON FOR EXAM: Female, 64 years old. Routine annual screening examination. PERTINENT HISTORY: Personal history of breast cancer. History of prior left lumpectomy with radiation. Prior left stereotactic breast biopsy. Remote right stereotactic breast biopsy. TECHNIQUE: Digital bilateral breast viktoria (3D mammographic acquisition) in the CC and MLO projections. 2-D mediolateral oblique (MLO) and craniocaudad (CC) views of both breasts were obtained. CAD: Full Field Digital Mammography with Computer Added Detection was performed. COMPARISON: Comparison is made with prior study dated August 07, 2023 and August 04, 2022. FINDINGS: Breast Composition: The breasts are heterogeneously dense, which may obscure small masses. There are no dominant masses or suspicious calcifications. The patient is status post lumpectomy in the upper outer quadrant of the left breast with resultant postoperative scarring. A tissue clip marker is seen in the superior retroareolar region of the left breast. 2 adjacent tissue markers are seen in the retroareolar region of the right breast. Stable small bilateral axillary lymph nodes. No other significant abnormalities are identified. There has been no significant change since the prior study. BI/SCRN MAMM (CAD)W/VIKTORIA BILAT IMPRESSION: Stable bilateral screening mammogram. Yearly follow-up mammogram recommended. (A) ASSESSMENT CATEGORY: BIRADS Category 2: Benign. A letter regarding these results will be sent to the patient by the facility within 30 days. Approximately 10% of breast cancers are not detected by mammography. A normal mammogram should not delay biopsy of a clinically suspicious abnormality. [id number] Electronically Signed: Hong Esquivel MD at 12:32 EST ,
== END | disposition home or self-care (01) ==
LOC: OPBI 11:56
PROVIDERS: PCP Family Medicine; Referring Provider Nurse Practitioner; Visit Provider Nurse Practitioner
DX: Z12.31 Encounter for screening mammogram for malignant neoplasm of breast (principal); Z85.3 Personal history of malignant neoplasm of breast
CPT/HCPCS: 77063; 77067